=== PATIENT | male | born 1960 | race Caucasian/White ===

== ENCOUNTER 2017-07-15 10:47 | Outpatient (CLI) | payer MEDICARE, OTHER ==
[2013-08-29 23:39] VITALS: BP 128/85
[2017-07-15 11:31] LABS: eGFR (African) > 60; eGFR (Non-African) > 60
== END 2017-07-15 10:50 ==
LOC: LAB 10:47
PROVIDERS: ATTEND Family Medicine
DX: E78.2 Mixed hyperlipidemia (principal)
CPT/HCPCS: 36415; 80053; 80061